=== PATIENT | male | born 1955 | race Two or more races ===

== ENCOUNTER 2019-03-18 21:44 | Inpatient (IN) | payer MEDICARE, MEDICAID ==
[~2019-03-18] VITALS: Ht 170.2 cm; Wt 84.8 kg
[2019-03-18] MEDS ORDERED: SODIUM CHLORIDE 0.9% 1,000 ML IV ONE (22:44)
[2019-03-18] MEDS ORDERED: TETANUS, DIPHTHERIA, PERTUSSIS VAC/PF 0.5ML (>7YR OLD) IM ONE (22:45)
[2019-03-18] MEDS ORDERED: BACITRACIN ZINC OINT UDPKT TOP ONE (22:45)
[2019-03-18 23:57] LABS: BASOPHILS % 0.5 % (0.0-2.0); HEMATOCRIT. 40.2 % (42.0-52.0); HEMOGLOBIN. 13.4 g/dL (14.0-18.0); LYMPHOCYTES % 10.5 % (20.0-50.0); MEAN CORPUSCULAR VOLUME 87.4 fL (80.0-94.0); MEAN PLATELET VOLUME 8.8 fl (7.4-10.4); MONOCYTES % 9.2 % (2.0-8.0); NEUTROPHILS % 79.8 % (40.0-76.0); PLATELET 198 x1000/uL (130-400); RED CELL DISTRIBUTION WIDTH 14.5 % (11.6-14.6)
[2019-03-19] MEDS ORDERED: BACITRACIN 15GM TUBE TOP NR (00:01)
[2019-03-19 00:15] LABS: CHLORIDE 110 mEq/L (98-107)
[2019-03-19 00:18] LABS: ETHANOL BLOOD < 10 mg/dL
[2019-03-19 00:25] LABS: CREATINE KINASE MB FRACTION 9.5 ng/mL (0.5-3.6)
[2019-03-19 00:35] LABS: CREATINE KINASE 2815 IU/L (39-308)
[2019-03-19] MEDS ORDERED: CLONIDINE 0.1MG TABLET PO PRN (01:45)
[2019-03-19] MEDS ORDERED: ACETAMINOPHEN 325MG TABLET PO PRN (01:45)
[2019-03-19] MEDS ORDERED: ONDANSETRON HCL 4MG/2ML INJ IV PRN (01:45)
[2019-03-19 02:22] VITALS: BP 158/87
[2019-03-19 02:30] LABS: CLARITY URINE CLEAR (CLEAR); COLOR URINE DARK YELLOW (YELLOW); KETONES URINE 2+ (NEGATIVE); LEUKOCYTE ESTERASE URINE NEGATIVE (NEGATIVE); NITRITE URINE NEGATIVE (NEGATIVE); OCCULT BLOOD URINE NEGATIVE (NEGATIVE); PROTEIN URINE NEGATIVE (NEGATIVE); SPECIFIC GRAVITY URINE 1.028 (1.005-1.030)
[2019-03-19 02:42] LABS: *BARBITURATES SCREEN URINE NEGATIVE (NEGATIVE); CANNABINOID URINE SCREEN NEGATIVE (NEGATIVE); METHADONE URINE SCREEN NEGATIVE (NEGATIVE); OPIATES URINE SCREEN NEGATIVE (NEGATIVE); PHENCYCLIDINE URINE SCREEN NEGATIVE (NEGATIVE)
[2019-03-19 02:43] LABS: *AMPHETAMINES SCREEN URINE NEGATIVE (NEGATIVE); *BENZODIAZEPINES SCREEN URINE NEGATIVE (NEGATIVE); *COCAINE SCREEN URINE NEGATIVE (NEGATIVE)
[2019-03-19 03:16] LABS: HEPATITIS B SURFACE ANTIGEN NEGATIVE
[2019-03-19] MEDS: SODIUM CHLORIDE 0.9% 1,000 ML IV SCH ×2 (03:43→14:50)
[2019-03-19 03:46] LABS: HEPATITIS A AB IGM NEGATIVE (NEGATIVE)
[2019-03-19 04:00] VITALS: BP 132/58
[2019-03-19 08:00] VITALS: BP 130/73
[2019-03-19 12:00] VITALS: BP 116/60
[2019-03-19 14:15] LABS: CREATINE KINASE 1821 IU/L (39-308)
[2019-03-19 16:00] VITALS: BP 121/68
[2019-03-19 20:00] VITALS: BP 121/60
[2019-03-20] VITALS: BP 135/65
[2019-03-20] MEDS: SODIUM CHLORIDE 0.9% 1,000 ML IV SCH ×3 (02:26→18:22)
[2019-03-20 04:00] VITALS: BP 142/73
[2019-03-20 06:50] LABS: CREATINE KINASE 788 IU/L (39-308)
[2019-03-20 08:00] VITALS: BP 130/70
[2019-03-20] MEDS ORDERED: MIRT7.5T11 MT (11:31)
[2019-03-20] MEDS ORDERED: ATOR40TA70 MT (11:31)
[2019-03-20] MEDS ORDERED: METO25TA6 MT (11:31)
[2019-03-20] MEDS ORDERED: CARB-124 PO (11:31)
[2019-03-20] MEDS ORDERED: OXYB5TAB11 PO (11:31)
[2019-03-20 12:00] VITALS: BP 138/76
[2019-03-20 13:21] LABS: T4 FREE 0.88 ng/dL (0.76-1.46)
[2019-03-20] MEDS: METOPROLOL TARTRATE 25MG TABLET PO SCH ×2 (13:59→20:21)
[2019-03-20 14:17] LABS: FOLIC ACID (FOLATE) SERUM 15.7 ng/mL (>5.38)
[2019-03-20 16:00] VITALS: BP 124/77
[2019-03-20] MEDS: OXYBUTYNIN CHLORIDE 5MG TABLET PO SCH (16:19)
[2019-03-20 16:24] LABS: BASOPHILS % 0.5 % (0.0-2.0); EOSINOPHILS % 1.4 % (0.0-5.0); HEMOGLOBIN. 12.5 g/dL (14.0-18.0); LYMPHOCYTES % 20.3 % (20.0-50.0); MEAN CORPUSCULAR HEMOGLOBIN 29.4 pg (28.0-32.0); MEAN CORPUSCULAR VOLUME 89.7 fL (80.0-94.0); MEAN PLATELET VOLUME 9.9 fl (7.4-10.4); MONOCYTES % 9.8 % (2.0-8.0); PLATELET 167 x1000/uL (130-400); RED BLOOD CELL COUNT 4.24 mill/uL (4.7-6.1); RED CELL DISTRIBUTION WIDTH 15.7 % (11.6-14.6)
[2019-03-20 16:28] LABS: CHLORIDE 115 mEq/L (98-107)
[2019-03-20 16:43] LABS: *AMPHETAMINES SCREEN URINE NEGATIVE (NEGATIVE); *BARBITURATES SCREEN URINE NEGATIVE (NEGATIVE); *BENZODIAZEPINES SCREEN URINE NEGATIVE (NEGATIVE); *COCAINE SCREEN URINE NEGATIVE (NEGATIVE); METHADONE URINE SCREEN NEGATIVE (NEGATIVE); OPIATES URINE SCREEN NEGATIVE (NEGATIVE)
[2019-03-20 16:44] LABS: CANNABINOID URINE SCREEN NEGATIVE (NEGATIVE); PHENCYCLIDINE URINE SCREEN NEGATIVE (NEGATIVE)
[2019-03-20] MEDS ORDERED: OXYCODONE HCL 5MG TABLET PO SCH (17:00)
[2019-03-20] MEDS: ENTACAPONE 200MG TABLET PO SCH (18:22)
[2019-03-20] MEDS: CARBIDOPA/LEVODOPA 25/100MG TABLET PO SCH (18:22)
[2019-03-20 20:00] VITALS: BP 116/68
[2019-03-20] MEDS ORDERED: OXYBUTYNIN CHLORIDE 5MG TABLET PO SCH (21:00)
[2019-03-20] MEDS ORDERED: ATORVASTATIN CALCIUM 40MG TABLET PO SCH (21:00)
[2019-03-20] MEDS ORDERED: MIRTAZAPINE 30MG TABLET PO SCH (21:00)
[2019-03-20] MEDS ORDERED: MIRTAZAPINE 15MG TABLET PO SCH (21:00)
[2019-03-21] VITALS (7 sets, daily range): BP systolic 111–130; BP diastolic 58–70
[2019-03-21] MEDS: SODIUM CHLORIDE 0.9% 1,000 ML IV SCH ×3 (03:58→18:36)
[2019-03-21] MEDS: CARBIDOPA/LEVODOPA 25/100MG TABLET PO SCH ×2 (06:15→18:36)
[2019-03-21] MEDS: ENTACAPONE 200MG TABLET PO SCH ×2 (06:16→18:37)
[2019-03-21] MEDS: METOPROLOL TARTRATE 25MG TABLET PO SCH (09:00)
[2019-03-21] MEDS: OXYBUTYNIN CHLORIDE 5MG TABLET PO SCH ×3 (09:35→17:33)
[2019-03-21] MEDS ORDERED: ENTACAPONE 200MG TABLET PO SCH ×2 (11:00→15:00)
[2019-03-21] MEDS ORDERED: CARBIDOPA/LEVODOPA 25/100MG TABLET PO SCH ×2 (11:00→15:00)
[2019-03-21] MEDS ORDERED: TAMS-11 PO (15:31)
== END 2019-03-21 21:03 | disposition home or self-care (01) | DRG 557 ==
LOC: ER 21:44 → 5WST 03-19 01:01 → ENRESERV 03-19 01:39 → 5WST 03-19 02:18
PROVIDERS: ADMIT Internal Medicine; ATTEND Internal Medicine
PROC: 4A00X4Z Measurement of Central Nervous Electrical Activity, External Approach (ICD-10-PCS; principal; 2019-03-20)
DX: M62.82 Rhabdomyolysis (principal); G93.41 Metabolic encephalopathy; G20 Parkinson's disease; E87.8 Other disorders of electrolyte and fluid balance, not elsewhere classified; R74.0 Nonspecific elevation of levels of transaminase and lactic acid dehydrogenase [LDH]
CPT/HCPCS: 36415; 80048; 80305; 80320; 81003; 82140; 82550; 82553; 82607; 82746; 83036; 83880; 84439; 84443; 84481; 84484; 86705; 86709; 86803; 87340; 90715; 93005; 97110; 97116; 97162; 99285; J7030; G0480